=== PATIENT | male | born 1940 | race Caucasian/White ===

== ENCOUNTER 2023-02-24 22:44 | Emergency (ER) | payer MEDICARE, SELFPAY ==
[2023-02-24 22:53] VITALS: BP 173/80; PULSE 65; RESP 20; TEMP 36.4; O2SAT 97
[2023-02-25 01:32] LABS: Basophils Percent Auto 0.4 % (0.2-1.2); Eosinophils Absolute Auto 0.2 K/mm3 (0-0.3); Eosinophils Percent Auto 2.5 % (0-4.4); Hematocrit 46.6 % (42.0-52.0); Hemoglobin 15.7 g/dL (14.0-18.0); Immature Granulocyte Absolute 0.02 K/mm3 (0.00-0.031); Immature Granulocyte Percent A 0.2 % (0-0.5); Lymphocytes Absolute Auto 0.78 K/mm3 (0.9-3.2); Lymphocytes Percent Auto 8.8 % (18.3-44.2); Mean Corpuscular HGB Conc 33.7 g/dl (32-36); Mean Corpuscular Hemoglobin 31.2 pg (26-34); Mean Corpuscular Volume 92.6 fl (80-100); Mean Platelet Volume 12.1 fl (7.4-10.4); Monocytes Absolute Auto 0.7 K/mm3 (0.1-0.6); Monocytes Percent Auto 8.1 % (2.6-8.5); Neutrophils Absolute Auto 7.1 K/mm3 (1.3-6.7); Platelet Count Result 189 k/mm3 (150-375); Red Blood Count 5.03 M/mm3 (4.6-6.20); Red Cell Distribution Width 15.7 % (11.5-14.5); White Blood Count 8.9 K/mm3 (4.5-10.0)
[2023-02-25 01:47] LABS: Alanine Aminotransferase 22 U/L (6-50); Albumin Level 4.4 g/dL (3.5-5.1); Alkaline Phosphatase 102 U/L (38-126); Anion Gap 8 mmol/L (8-16); Aspartate Amino Transferase 34 U/L (17-59); Blood Urea Nitrogen 18 mg/dL (9-20); Calcium 8.9 mg/dL (8.4-10.2); Carbon Dioxide 29 mmol/L (22-30); Chloride 101 mmol/L (98-107); Estimated CRCL calculation 60 ml/min; Estimated Glomerular Filt Rate 58; Glucose 106 mg/dL (65-110); Potassium 4.4 mmol/L (3.4-5.0); Sodium 138 mmol/L (137-145)
[2023-02-25 01:51] LABS: INR 2.5; Prothrombin Time 28.6 Seconds (11.1-14.7)
[2023-02-25 01:52] LABS: Partial Thromboplastin Time 42.8 SECONDS (22.3-36.8)
--- NOTE | 2023-02-25 02:49 | ED.GENADULT ---
HPI - General Adult General Chief complaint: Dental/Oral Stated complaint: tooth pulled earlier today, keeps bleeding Time Seen by Provider: 02/25/23 01:03 History of Present Illness HPI narrative: Patient is a 82-year-old gentleman who presents emergency department with chief complaint of bleeding from tooth extraction. Patient reports that he had a molar extracted in his right upper mouth this morning patient reports he gets bleeding afterwards and went back to the dentist and has subsequently continued to have bleeding. Patient reports that he is on anticoagulants reports his INR was 2.6 earlier today. Related Data Allergies Allergy/AdvReac Type Severity Reaction Status Date / Time No Known Allergies Allergy Mild Verified 03/19/10 11:52 Review of Systems Review of Systems: A 10 system review of systems was completed on the patient and is negative except for what is stated in the HPI. Nursing and ancillary documentation was reviewed. Exam Narrative: GENERAL: Well-appearing, well-nourished, and in no acute distress. HEAD: Normocephalic, atraumatic. EYES: PERRLA and EOMI. ENT: Nares clear, no rhinorrhea or epistaxis. Mucous membranes moist. There is a extraction of a upper molar on the right side that has a clot and is oozing blood NECK: Supple. CHEST: Clear to auscultation. No respiratory distress. HEART: Regular rate and rhythm. No murmur heard. Normal peripheral pulses. ABDOMEN: Soft, nontender, nondistended, normal active bowel sounds. EXTREMITIES: Normal range of motion. No edema. SKIN: Warm, dry, no rash. NEURO: No focal deficits. Alert and oriented x3. PSYCH: Normal mood and affect. Course Vital Signs Vital signs: Vital Signs Temperature 36.4 C 02/24/23 22:53 Pulse Rate 65 02/24/23 22:53 Respiratory Rate 20 02/24/23 22:53 Blood Pressure 173/80 H 02/24/23 22:53 Pulse Oximetry 97 02/24/23 22:53 Oxygen Delivery Room Air 02/24/23 22:53 Temperature 36.4 C 02/24/23 22:53 Pulse Rate 65 02/24/23 22:53 Respiratory Rate 20 02/24/23 22:53 Blood Pressure 173/80 H 02/24/23 22:53 Pulse Oximetry 97 02/24/23 22:53 Oxygen Delivery Room Air 02/24/23 22:53 Medical Decision Making MDM Narrative Medical decision making narrative: Differential diagnosis fluids warfarin coagulopathy. Postextraction bleeding. The area was irrigated with saline and then the mouth was rinsed with TXA and a gauze with TXA on it was applied to the area. The bleeding has slowed down to a slow ooze Vital Signs Vital Signs: Vital Signs Temperature 36.4 C 02/24/23 22:53 Pulse Rate 65 02/24/23 22:53 Respiratory Rate 20 02/24/23 22:53 Blood Pressure 173/80 H 02/24/23 22:53 Pulse Oximetry 97 02/24/23 22:53 Oxygen Delivery Room Air 02/24/23 22:53 Temperature 36.4 C 02/24/23 22:53 Pulse Rate 65 02/24/23 22:53 Respiratory Rate 20 02/24/23 22:53 Blood Pressure 173/80 H 02/24/23 22:53 Pulse Oximetry 97 02/24/23 22:53 Oxygen Delivery Room Air 02/24/23 22:53 Lab Data 02/25/23 01:26 02/25/23 01:26 Labs: Lab Results 02/25/23 Range/Units 01:26 WBC 8.9 (4.5-10.0) K/mm3 RBC 5.03 (4.6-6.20) M/mm3 Hgb 15.7 (14.0-18.0) g/dL Hct 46.6 (42.0-52.0) % MCV 92.6 (80-100) fl MCH 31.2 (26-34) pg MCHC 33.7 (32-36) g/dl RDW 15.7 H (11.5-14.5) % Plt Count 189 (150-375) k/mm3 MPV 12.1 H (7.4-10.4) fl Immature Gran % (Auto) 0.2 (0-0.5) % Neut % (Auto) 80.0 H (45.5-73.1) % Lymph % (Auto) 8.8 L (18.3-44.2) % [place] % (Auto) 8.1 (2.6-8.5) % Eos % (Auto) 2.5 (0-4.4) % Baso % (Auto) 0.4 (0.2-1.2) % Lymph # (Auto) 0.78 L (0.9-3.2) K/mm3 [place] # (Auto) 0.7 H (0.1-0.6) K/mm3 Eos # (Auto) 0.2 (0-0.3) K/mm3 Baso # (Auto) 0.0 (0.0-0.1) K/mm3 Abs Immat Gran (auto) 0.02 (0.00-0.031) K/mm3 Absolute Neuts (auto) 7.1 H (1.3-6.7) K/mm3 Absolute Nucleated RBC 0.0 (0.0-0.
[2023-02-25 02:50] VITALS: BP 143/84; PULSE 65; RESP 18; O2SAT 97
[2023-02-25 03:04] VITALS: BP 143/84; PULSE 78; RESP 20; O2SAT 98
== END 2023-02-25 03:06 | disposition home or self-care (01) ==
PROVIDERS: Emergency Provider Emergency Medicine
DX: K91.840 Postprocedural hemorrhage of a digestive system organ or structure following a digestive system procedure (principal); Z79.01 Long term (current) use of anticoagulants
CPT/HCPCS: 36415; 80053; 85025; 85610; 85730; 99283

== ENCOUNTER 2023-10-02 02:18 | Emergency (ER) | payer MEDICARE, SELFPAY ==
[2023-10-02] VITALS (11 sets, daily range): BP systolic 72–175; BP diastolic 45–88; PULSE 50–70; RESP 16–20; TEMP 36.7; O2SAT 93–99
--- NOTE | 2023-10-02 02:59 | ED.EPISTAXIS ---
HPI - Epistaxis General Chief complaint: Epistaxis <Dulce Maria Tran MD - Last Filed: 10/02/23 07:36> Stated complaint: SPONTANEOUS NOSEBLEED <Dulce Maria Tran MD - Last Filed: 10/02/23 07:36> Time Seen by Provider: 10/02/23 02:57 <Dulce Maria Tran MD - Last Filed: 10/02/23 07:36> Source: patient <Dulce Maria Tran MD - Last Filed: 10/02/23 07:36> Mode of arrival: ambulatory <Dulce Maria Tran MD - Last Filed: 10/02/23 07:36> Limitations: no limitations <Dulce Maria Tran MD - Last Filed: 10/02/23 07:36> History of Present Illness HPI Narrative: 83 year old old male presents with Spontaneous epistaxis. No trauma. Patient states many years ago he had few nosebleeds but nothing in the past several years. he notes that he will consume sleep without signs but was dark he consented to blow his nose upon turning lights realized it was blood. He is on warfarin for a DVT in lower extremity diagnosed 5-6 years ago. Patient couldn't tell if bleeding coming from right or left naris. Patient takes 20 mg lisinopril daily in the morning and is on warfarin with the following dosing regimen: M//F 5mg, T//Thu/Sun 10mg. he gets his INR checked monthly his last test was 3 weeks ago. no recent dosing changes in the past 3-4 months. <Dulce Maria Tran MD - Last Filed: 10/02/23 07:36> Related Data Allergies/adverse reactions: Allergies Allergy/AdvReac Type Severity Reaction Status Date / Time No Known Allergies Allergy Mild Verified 10/02/23 02:23 <Dulce Maria Tran MD - Last Filed: 10/02/23 07:36> [facility] Past Medical History Medical History: Medical History (Updated 10/02/23 @ 07:28 by Dulce Maria Tran MD) DVT of leg (deep venous thrombosis) Hypertension <Dulce Maria Tran MD - Last Filed: 10/02/23 07:36> Social History Social History: Social History (Updated 10/02/23 @ 07:29 by Dulce Maria Tran MD) Living arrangements: with family Additional living arrangements comments: <Dulce Maria Tran MD - Last Filed: 10/02/23 07:36> Exam Narrative: GENERAL: Well-appearing, well-nourished, and in no acute distress. HEAD: Normocephalic, atraumatic. EYES: Non injected, non icteric ENT: Left septum hyperemic but without active bleeding. Right naris with friable mucosa but otherwise without active bleeding. No bleeding appreciated in posterior oropharynx. NECK: Supple. CHEST: Speaking in complete sentences. No respiratory distress. HEART: Regular rate and rhythm. ABDOMEN: Soft, nondistended. EXTREMITIES: Normal range of motion. No edema. SKIN: Warm, dry, no rash. No pettechiae. NEURO: No focal deficits. Alert and oriented PSYCH: Normal mood and affect. Pleasant, conversational. <Dulce Maria Tran MD - Last Filed: 10/02/23 07:36> Course Course Emergency Course: 0810: Received call from [facility] regarding transfer. They state that they are unable to accept due to capacity. They would be unable to see him until 5:00 p.m. at the earliest. At this time they recommend repacking the affected nare or both nares if necessary. Can follow-up with them or our ENT on Thursday. 1100: Was able to easily pack the left nostril but was unable to pass a rhino rocket on the right due to an obstruction. Patient continues to ooze once pressure is discontinued. Do not feel that patient is safe for outpatient management. Spoke with Dr. Antwon Grigsby with ENT, and Dr. Sorenson with the ER and the patient has been accepted for ER to ER transfer for ENT evaluation. Patient's bleeding is controlled with persistent pressure, vitals remain within normal limits. No evidence of hemorrhagic shock. Airway is intact. Nasal clamp in place for control of bleeding. Feel he is safe for transfer via ALS. Patient and his daughter are agreeable with this plan. <Erma Wright MD - Last Filed: 10/02/23 11:15> Vital Signs Vital signs:
[2023-10-02 03:32] LABS: Basophils Absolute Auto 0.1 K/mm3 (0.0-0.1); Basophils Percent Auto 0.6 % (0.2-1.2); Eosinophils Absolute Auto 0.3 K/mm3 (0-0.3); Eosinophils Percent Auto 3.6 % (0-4.4); Hematocrit 42.6 % (42.0-52.0); Hemoglobin 13.9 g/dL (14.0-18.0); Immature Granulocyte Absolute 0.03 K/mm3 (0.00-0.031); Immature Granulocyte Percent A 0.3 % (0-0.5); Lymphocytes Absolute Auto 1.25 K/mm3 (0.9-3.2); Mean Corpuscular HGB Conc 32.6 g/dl (32-36); Mean Corpuscular Hemoglobin 29.8 pg (26-34); Mean Corpuscular Volume 91.2 fl (80-100); Mean Platelet Volume 11.7 fl (7.4-10.4); Monocytes Absolute Auto 0.8 K/mm3 (0.1-0.6); Monocytes Percent Auto 9.2 % (2.6-8.5); Neutrophils Absolute Auto 6.4 K/mm3 (1.3-6.7); Neutrophils Percent Auto 72.3 % (45.5-73.1); Platelet Count Result 180 k/mm3 (150-375); Red Blood Count 4.67 M/mm3 (4.6-6.20); Red Cell Distribution Width 16.2 % (11.5-14.5); White Blood Count 8.9 K/mm3 (4.5-10.0)
[2023-10-02] MEDS: OXYMETAZOLINE HCL 0.05% NAS 15 ML BTL (*BKC) 1 SPRAY NASAL ×2 (03:33→05:49)
--- NOTE | 2023-10-02 03:40 | PC.NURSE ---
This RN went to check on pt and pt appeared pale and stated he was feeling dizzy. HR 55 and recycled BP was 78/47. EDP Dr. Tran made aware and VORB 1L NS bolus. EDP at bedside assessing pt at this time. LULU Gates starting IV on pt.
[2023-10-02 03:43] LABS: Alanine Aminotransferase 19 U/L (6-50); Albumin Level 3.6 g/dL (3.5-5.1); Alkaline Phosphatase 86 U/L (38-126); Anion Gap 4 mmol/L (8-16); Aspartate Amino Transferase 34 U/L (17-59); Bilirubin,Total 0.6 mg/dL (0.2-1.3); Blood Urea Nitrogen 24 mg/dL (9-20); Calcium 8.7 mg/dL (8.4-10.2); Carbon Dioxide 26 mmol/L (22-30); Chloride 107 mmol/L (98-107); Estimated CRCL calculation 64 ml/min; Estimated Glomerular Filt Rate > 60; Glucose 103 mg/dL (65-110); Potassium 4.2 mmol/L (3.4-5.0); Prothrombin Time 33.9 Seconds (11.1-14.7); Sodium 137 mmol/L (137-145)
[2023-10-02] MEDS: SODIUM CHLORIDE 0.9% IV 1,000 ML 999 ML IV CONT (03:47)
--- NOTE | 2023-10-02 03:52 | ECG_ITS ---
Measurements Intervals [place] Rate: 54 P: 19 SD: 169 QRS: 5 QRSD: 102 T: 40 QT: 419 QTc: 398 Interpretive Statements SINUS BRADYCARDIA OTHERWISE NORMAL ELECTROCARDIOGRAM NO PREVIOUS ECG AVAILABLE FOR COMPARISON Electronically Signed On 10-02-2023 12:38:14 NURSE PRACTICAL by Nam Redding M.D.
--- NOTE | 2023-10-02 05:37 | PC.NURSE ---
Afrin applied to nostril and 4x4 gauze placed.
[2023-10-02] MEDS: PHARMACIST COMMUNICATION ORDER 1 EACH XX (05:49)
[2023-10-02] MEDS: PHYTONADIONE ADULT INJ 10 MG in DEXTROSE 5% IN WATER 50 ML 100 MG IVPB (07:53)
--- NOTE | 2023-10-02 11:19 | PC.NURSE ---
[place] for zofran 4 mg ivp x1 per Dr Wright
[2023-10-02] MEDS: ONDANSETRON INJ 4 MG/2 ML VIAL (11:20)
== END 2023-10-02 12:00 | disposition short-term general hospital (02) ==
PROVIDERS: Student in an Organized Health Care Education/Training Program; Emergency Provider Emergency Medicine
DX: R04.0 Epistaxis (principal); D64.9 Anemia, unspecified; I95.9 Hypotension, unspecified; R00.1 Bradycardia, unspecified; I10 Essential (primary) hypertension; Z86.718 Personal history of other venous thrombosis and embolism; Z79.01 Long term (current) use of anticoagulants
CPT/HCPCS: 30905; 30901; 36415; 80053; 85025; 85610; 85730; 93005; 96361; 96365; 96375; 99285; A9270; J2405; J3430; J7030